=== PATIENT | male | born 1965 | race African-American/Black ===

== ENCOUNTER 2021-07-24 17:01 | Emergency (ER) | payer OTHER, MEDICAID, SELFPAY ==
[2021-07-24 17:14] VITALS: PULSE 80; RESP 16; TEMP 36.7; O2SAT 100; BMI 21.5
--- NOTE | 2021-07-24 18:02 | ED_ITS ---
HPI - Psych General Chief Complaint: ETOH/Substance Use Stated Complaint: etoh Time Seen by Provider: 07/24/21 18:02 Source: patient Mode of arrival: EMS Limitations: other (poor historian, intoxicated?) History of Present Illness HPI Narrative: 56-year-old male past medical history unknown presents to the emergency department via ambulance, he was sent here because somebody called the police department because they found him stumbling in the streets. At some point patient fell forward onto his hands, not hitting his head he has a small abrasion to the left middle finger the distal aspect. Patient keeps telling me he does not know where he is, he tells me he means a terminal . Patient is not making much sense. 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 He tells me he does not know who called the police and he says he is okay and he would like to leave. He offers no complaints at this time. He denies chest pain, shortness of breath, fevers, chills, nausea, vomiting, dizziness, headache, vision changes. He denies visual, auditory and tactile hallucinations. Patient denies suicidal ideation and HI. Patient is not on blood thinners. MD complaint: alcohol abuse Onset (ago): day(s) (1) Duration: constant History of same: No Relieving factors: none Exacerbating factors: none Context: recent alcohol abuse Associated psychiatric symptoms: none Associated symptoms: denies other symptoms Treatments prior to arrival: none Related Data Allergies Allergy/AdvReac Type Severity Reaction Status Date / Time No Known Allergies Allergy Unverified 05/01/20 17:00 [No Known Allergies*] Review of Systems Review of Systems: Constitutional : No Weight loss, No Fever, No Chills, No Fatigue, No Malaise ENT/Mouth : No sore throat, No Rhinorrhea Eyes: No Eye Pain, No Swelling, No Redness Cardiovascular : No Chest Pain, No SOB, No Dyspnea on Exertion, No Orthopnea, No Edema, No Palpitations Respiratory : No Cough, No Sputum, No Wheezing Gastrointestinal : No Nausea, No Vomiting, No Diarrhea, No Constipation, No abdominal Pain, No Hematochezia, No Melena Genitourinary : No Dysuria, No Urinary Frequency, No Hematuria, Musculoskeletal : No joint pain, No Myalgias, No Joint Swelling Skin : No Skin Lesions, No rash, + laceration Neuro : No Weakness, No Numbness, No Dizziness, No Headache Psych : No Anxiety/Panic, No Depression, No si/HI All other systems reviewed and are negative Yes all other systems are reviewed and are negative [facility] Past Medical History Attestation statement: The following information was validated with the patient. Source: old records reviewed and nursing notes reviewed Social History Social History Alcohol intake: current Patient Tobacco Use Status: Tobacco use Unknown Use of substances other than those prescribed or required for medical reasons: Unknown Advance Directives: No Advance Directives Information Provided: No Physical Exam Vital Signs: Vital Signs: Last Vital Signs Temp 98.0 F 07/24/21 17:14 Pulse 80 07/24/21 17:14 Resp 16 07/24/21 17:14 Pulse Ox 100 07/24/21 17:14 BMI result Body Mass Index 21.5 VSS Appearance: Alert.? Oriented X3.? No acute distress.? Head: Normocephalic, atraumatic, no step-offs or deformities Eyes: Pupils equal, round and reactive to light.? ENT: Pharynx normal.? Neck: Normal inspection.? Neck supple.? CVS: Normal heart rate and rhythm.? Pulses normal.? Respiratory: No respiratory distress.? Breath sounds normal.? Abdomen: Soft and nontender.? Skin: Skin warm and dry.? Normal skin color.? Normal skin turgor.?+ small linear laceration to left middle finger distal aspect. Extremities: No lower extremity edema.? No calf ttp. 5/5 strength to bilateral upper and lower extremities Back: No midline tenderness, no C-spine tenderness, full range of motion, no CVA tenderness bilaterally Neuro: Oriented X 3.? No motor deficit.? No sensory deficit. Cn 2-12 intact Course Reevaluation(s) Reevaluation #1: Laceration was cleaned thoroughly with saline. I want to go evaluate the wound however patient had eloped. Time: 18:30 MDM - Psych MDM Narrative Medical decision making narrative: 1800 56-year-old male no known medical history presents to the emergency department with EMS, they tell us that PD was called because patient was walking in and out of the street, according to EMS patient fell forward, catching himself with his hands, not hitting his head and sustained a small laceration to his left middle finger, distal aspect. Patient does not no know why he is here. He appears to be intoxicated. He is not answering questions appropriately but tells me he wants to leave and he is in no pain. Upon physical examination patient is speaking rapidly, and appears to be intoxicated. Lungs are clear. S1-S2 appreciated free of murmurs. Abdomen soft nontender nondistended. Head is normocephalic, atraumatic no step-offs or deformities. No focal neuro deficits, cranial nerves 2-12 intact. Pupils equal round and reactive to light. Patient moving all extremities including neck without pain. Plan at this time is to obtain basic labs, ETOH. Medical Records Attestation: I reviewed the patient's medical records. Lab Data Attestation: I reviewed the patient's lab results. Critical Care Time Critical Care Time Critical Care Time: No Discharge Plan Discharge Clinical Impression: Alcoholic intoxication Patient Disposition: Elopement Interventions: ED Discharge Assessment Last Done: 07/24/21 18:33 Discharge Date/Time: 07/24/21 18:33
== END 2021-07-24 18:33 | disposition left against medical advice (07) ==
PROVIDERS: Emergency Provider Internal Medicine
DX: F10.129 Alcohol abuse with intoxication, unspecified (principal); Y90.9 Presence of alcohol in blood, level not specified
CPT/HCPCS: 99281; 99284

== ENCOUNTER 2022-02-17 13:11 | Emergency (ER) | payer OTHER, MEDICAID, SELFPAY ==
[2022-02-17 13:19] VITALS: BP 123/68; PULSE 89; O2SAT 99
[2022-02-17 13:21] VITALS: BP 112/70; PULSE 74; RESP 16; TEMP 36.1; O2SAT 97; BMI 22.1
--- NOTE | 2022-02-17 13:31 | MHC.RECOVSUP ---
? Reason for consult:Recovery Support o Current location:[facility] o Identified substance use concern:ETOH - Support ? Intervention: o Community resources provided o ? Plan: o Referral to CCC o Patient to follow up with [facility] after discharge ? Additional information:Patient refuses detox, patient wants to leave.
--- NOTE | 2022-02-17 13:36 | ED_ITS ---
HPI - Alcohol General Chief Complaint: ETOH/Substance Use Stated Complaint: PTOH Time Seen by Provider: 02/17/22 13:36 Source: patient Mode of arrival: EMS Limitations: no limitations History of Present Illness HPI narrative: Patient had few beers was walking on the street knocked at the someone house for the water who called EMS patient denies any suicidal ideation or depression ambulatory steady gait Related Data Allergies Allergy/AdvReac Type Severity Reaction Status Date / Time No Known Allergies Allergy Unverified 05/01/20 17:00 [No Known Allergies*] Review of Systems Review of Systems: Yes all other systems are reviewed and are negative [facility] Social History Social History Alcohol intake: current Patient Tobacco Use Status: Tobacco use Unknown Advance Directives: No Advance Directives Information Provided: No Physical Exam ED Vital Signs: Vital Signs - 24 hr 02/17/22 13:21 Temperature 97.0 F Pulse Rate 74 Respiratory Rate 16 Blood Pressure 112/70 Pulse Oximetry 97 Oxygen Delivery Method Room Air BMI result Body Mass Index 22.1 Appearance: Alert. Oriented X3. No acute distress. ETOH++ HEENT: Pharynx normal Oral Mucosa moist, atraumatic normocephalic Neck: Normal inspection. Neck supple. CVS: Normal heart rate and rhythm. Pulses normal. Respiratory: No respiratory distress. Equal air entry bilateral, no wheezing/rales/rhonchi Abdomen: Soft and nontender. Bowel sounds are present, no mass palpable, Skin: Skin warm and dry. Normal skin color. Normal skin turgor. Extremities: No lower extremity edema. No calf tenderness Neuro: Oriented X 3. No motor deficit. No sensory deficit.No cerebellar signs , cranial nerves II-XII intact walking steady gait MDM - Alcohol MDM Narrative Medical decision making narrative: Patient intoxicated but alert orient x3 and walking unsteady gait refused any help refused to stay in the hospital will discharge patient Discharge Plan Discharge Clinical Impression: Alcoholic intoxication Patient Disposition: Home, Self-Care Instructions: Alcohol Intoxication (ED) Additional Instructions: Do not drink alcohol in public Follow detox as needed Interventions: ED Discharge Assessment Last Done: 02/17/22 13:51 Discharge Date/Time: 02/17/22 13:51
--- NOTE | 2022-02-17 13:50 | PC.NURSE ---
PT EVALUATED BY DR COLON. PT AWAKE, ALERT. CAN SPEAK TO EVENTS THAT BROUGHT HIM TO THE ED. DENIES SI/HI. TOLERATING PO. AMBULATORY FOR PROVIDER WITH STEADY GAIT. REQUESTING TO LEAVE AND REPORTS THAT HE NEVER WANTED TO COME TO THE ED.
== END 2022-02-17 13:51 | disposition home or self-care (01) ==
PROVIDERS: Emergency Provider Internal Medicine
DX: F10.920 Alcohol use, unspecified with intoxication, uncomplicated (principal); Y90.9 Presence of alcohol in blood, level not specified
CPT/HCPCS: 99282